=== PATIENT | male | born 1965 | race Caucasian/White ===

== ENCOUNTER 2020-12-03 07:57 | Emergency (ER) | payer BC ==
[~2020-12-03] VITALS: Ht 185.4 cm; Wt 104.5 kg
[~2020-12-03 07:57] MED LIST: IBUP-1984 PO
[2020-12-03] MEDS ORDERED: normal saline 1000ML IV soln IVB ONE (08:50)
[2020-12-03 09:10] LABS: BASOPHILS # (AUTO) 0.1 X10'3 (0-0.2); BASOPHILS % (AUTO) 0.7 % (0-1); EOSINOPHILS # (AUTO) 0.2 X10'3 (0-0.9); EOSINOPHILS % (AUTO) 2.6 % (0-6); HEMATOCRIT 44.7 % (42.0-52.0); HEMOGLOBIN 15.4 g/dl (14.0-17.9); LYMPHOCYTES # (AUTO) 1.5 X10'3 (1.1-4.8); LYMPHOCYTES % (AUTO) 18.1 % (21-51); MEAN CORPUSCULAR HEMOGLOBIN 30.9 PG (27.0-31.0); MEAN CORPUSCULAR HGB CONC 34.3 g/dL (33.0-36.5); MEAN CORPUSCULAR VOLUME 89.9 FL (78-98); MEAN PLATELET VOLUME 9.7 FL (7.4-10.4); MONOCYTES # (AUTO) 0.7 X10'3 (0-0.9); MONOCYTES % (AUTO) 7.9 % (2-12); NEUTROPHILS # (AUTO) 5.9 X10'3 (1.8-7.7); NEUTROPHILS % (AUTO) 70.7 % (42-75); PLATELET COUNT 130 X10'3 (140-440); RED BLOOD COUNT 4.97 X10'6 (4.70-6.10); RED CELL DISTRIBUTION WIDTH 12.4 % (11.5-14.5); WHITE BLOOD COUNT 8.4 X10'3 (4.5-11.0)
[2020-12-03 09:21] LABS: ALANINE AMINOTRANSFERASE 49 U/L (12-78); ALBUMIN 3.2 G/DL (3.4-5.0); ALBUMIN/GLOBULIN RATIO 0.8 (1.1-1.5); ALKALINE PHOSPHATASE 80 IU/L (46-116); ANION GAP 8 (8-16); ASPARTATE AMINO TRANSFERASE 28 U/L (10-37); BILIRUBIN,TOTAL 0.7 MG/DL (0.1-1.0); BLOOD UREA NITROGEN 9 MG/DL (7-18); BUN/CREATININE RATIO 9.4 (5.4-32.0); CALCIUM 8.2 MG/DL (8.5-10.1); CHLORIDE 106 MMOL/L (99-107); CREATININE 0.96 MG/DL (0.60-1.10); GLUCOSE 143 MG/DL (70-104); POTASSIUM 3.9 MMOL/L (3.5-5.1); SODIUM 140 MMOL/L (135-145); TOTAL CARBON DIOXIDE 25.8 MMOL/L (24-32); eGFR 82 ML/MIN
[2020-12-03] MEDS ORDERED: iohexol 300mg/ml 100ml inj. ONE (09:24)
[2020-12-03 10:46] VITALS: BP 151/104
== END 2020-12-03 10:10 | disposition home or self-care (01) ==
LOC: ER 07:58
DX: K62.89 Other specified diseases of anus and rectum (principal); Z98.890 Other specified postprocedural states; Z72.89 Other problems related to lifestyle
CPT/HCPCS: 36415; 74177; 80053; 85025; 96360; 99285; J7030; Q9967

== ENCOUNTER 2021-05-08 10:34 | Emergency (ER) | payer BC, OTHER ==
[~2021-05-08] VITALS: Ht 185.4 cm; Wt 100.0 kg
[2021-05-08 11:59] VITALS: BP 140/93
[2021-05-08] MEDS ORDERED: VALA100031 PO (12:17)
== END 2021-05-08 12:39 | disposition home or self-care (01) ==
LOC: ER 10:35
DX: B02.9 Zoster without complications (principal); Z72.89 Other problems related to lifestyle; Z79.899 Other long term (current) drug therapy
CPT/HCPCS: 99283